=== PATIENT | male | born 1960 | race Two or more races ===

== ENCOUNTER 2024-06-09 10:26 | Emergency (ER) | payer MEDICARE, MEDICAID, SELFPAY ==
[2024-06-09 10:28] VITALS: BMI 27.4
[2024-06-09 10:39] VITALS: BP 165/82; PULSE 98; RESP 18; TEMP 39.4; O2SAT 96
--- NOTE | 2024-06-09 10:52 | XR_ITS ---
Examination: PA lateral chest 2 views Technique: Upright PA lateral chest 2 views Exam date and time: June 09, 2024 11:04 AM Indications: Coughing congestion fever bodyaches today. Findings: CABG. No significant cardiac enlargement No pneumonia or pulmonary edema Impression: No pneumonia or pulmonary edema
--- NOTE | 2024-06-09 10:52 | PD.EDRME ---
Rapid Medical Screening Exam RME Arrival date/time: 06/09/24 10:26 63-year-old male presents emergency department today for complaints of cough, congestion, fever body aches Chief Complaint: Flu Like Symptoms Vital signs: Vital Signs Temperature 102.9 F H 06/09/24 10:39 Pulse Rate 98 06/09/24 10:39 Respiratory Rate 18 06/09/24 10:39 Blood Pressure 165/82 H 06/09/24 10:39 Pulse Oximetry (%) 96 06/09/24 10:39 Oxygen Delivery Method Room Air 06/09/24 10:39
[2024-06-09 11:07] LABS: Collection Type, Urine Clean Catch; Squamous Epithelial Cell,Urine 0 /hpf (0-5)
[2024-06-09 11:14] LABS: Bilirubin,Urine Negative (Negative); Blood,Urine Negative (Negative); Clarity,Urine Clear (Clear/Hazy); Color,Urine Lt-Yellow (Lt Yel-Yel); Glucose, Urine 4+ (Negative); Ketones,Urine Negative (Negative); Leukocyte Esterase,Urine Negative (Negative); Nitrite,Urine Negative (Negative); PH,Urine 5.5 (5.0-7.0); Protein,Urine Trace (Neg - Trace); RBC,Urine 2 /hpf (0-3); Specific Gravity,Urine 1.034 (1.001-1.035); Urobilinogen,Urine Negative mg/dL (0.0-1.0); WBC,Urine 1 /hpf (0-5)
[2024-06-09] MEDS: ACETAMINOPHEN 500 MG TABLET 1000 MG PO (11:22)
[2024-06-09 12:07] LABS: Lactate (Lactic Acid) 1.5 mMol/L (0.4-2.0)
[2024-06-09 12:10] LABS: Basophils # (Auto) 0.1 Thou/mm3 (0.0-0.2); Basophils % (Auto) 1 % (0-2.5); Eosinophils % (Auto) 0 % (0-10); Hematocrit 43.1 % (41.0-53.0); Hemoglobin 14.6 g/dL (13.5-16.0); Immature Granulocytes % (Auto) 0 % (0-0); Immature Granulocytes Auto 0.05 Thou/mm3 (0.00-0.00); Lymphocytes # (Auto) 1.4 Thou/mm3 (1.0-4.8); Lymphocytes % (Auto) 9 % (10-50); Mean Corpuscular HGB Conc 33.9 g/dl (31.0-37.0); Mean Corpuscular Hemoglobin 29.5 pg (25.0-35.0); Mean Corpuscular Volume 87 fL (80-100); Monocytes # (Auto) 1.4 Thou/mm3 (0.0-0.8); Monocytes % (Auto) 10 % (0-12); Neutrophils # (Auto) 11.8 Thou/mm3 (1.8-7.7); Neutrophils % (Auto) 80 % (37-80); Nucleated Red Blood Cell % 0 /100 WBC (0); Platelet Count 206 Thou/mm3 (140-440); RDW Standard Deviation 42.6 fL (35.1-43.9); Red Blood Count 4.95 Miln/mm3 (4.50-5.90); White Blood Count 14.7 Thou/mm3 (3.8-10.6)
[2024-06-09 12:38] LABS: Alanine Aminotransferase 20 U/L (10-49); Albumin, Serum 4.6 gm/dL (3.4-4.8); Albumin/Globulin Ratio 1.5 (1.2-2.2); Alkaline Phosphatase 71 U/L (46-116); Anion Gap 7 (7-16); Aspartate Amino Transferase 20 U/L (0-34); BUN/Creatinine Ratio 10 Ratio (12-20); Bilirubin,Total 0.8 mg/dL (0.3-1.2); Blood Urea Nitrogen 14 mg/dL (9-23); Calcium 9.5 mg/dL (8.3-10.6); Calcium (Corrected) 9.5 mg/dL (8.5-10.1); Carbon Dioxide 26.4 mMol/L (20.0-31.0); Chloride 102 mMol/L (98-107); Creatinine (Component) 1.4 mg/dL (0.6-1.3); Estimated Creatinine Clearance 52.4 mL/min (>60); Glucose 185 mg/dL (74-106); Osmolality,Calculated 275 (275-295); Potassium 4.2 mMol/L (3.4-5.1); Procalcitonin 0.18 ng/ml (0.0-0.49); Sodium 135 mMol/L (136-145); Total Protein 7.6 gm/dL (5.7-8.2); eGFR 57 See Note
[2024-06-09 13:24] VITALS: TEMP 37.4
[2024-06-09 13:25] VITALS: BP 144/75; PULSE 85; RESP 17; TEMP 37.4; O2SAT 96
--- NOTE | 2024-06-09 15:04 | PC.NURSE ---
MALE VISITOR CAME TO TRIAGE DESK TO ASK HOW MUCH LONGER AND INFORMED THAT ALL RESULTS BACK AND WAITING ON PROVIDER TO REVIEW RESULTS. INFORMED THAT UNKNOWN WHEN PROVIDER WILL BE AVAILABLE TO REVIEW DUE TO JUST GETTING 2 CRITICAL PT'S IN THE BACK.
[2024-06-09 16:24] VITALS: BP 173/77; PULSE 93; RESP 24; TEMP 39.2; O2SAT 96
[2024-06-09] MEDS: IBUPROFEN TAB 600 MG TABLET PO (16:55)
[2024-06-09 17:24] VITALS: BP 151/70; PULSE 87; RESP 20; TEMP 37.9; O2SAT 96
--- NOTE | 2024-06-09 17:26 | PD.EDADULT ---
ED General RME/HPI General Chief complaint: Flu Like Symptoms Stated complaint: FLU SYMPTOMS FOR 5 DAYS Arrival date/time: 06/09/24 10:26 RME / HPI RME / HPI narrative: 06/09/24 10:26 63-year-old male presents emergency department today for complaints of cough, congestion, fever body aches DEYANIRA HPI: 63-year-old male otherwise healthy who presents to the emergency department with 2 weeks of generalized myalgias and joint pains that has now progressed to 5 days of fevers, cough and congestion. He denies chest pain or shortness of breath. He denies nausea vomiting or diarrhea. He denies sick contact. Related Data Previous Rx's ?Medication ?Instructions ?Recorded acetaminophen 325 mg tablet 650 mg (2 x 325 mg) PO Q6HR PRN 06/09/24 (Tylenol) fever or pain #20 tabs benzonatate 100 mg capsule 100 mg PO TID PRN cough #10 caps 06/09/24 ibuprofen 600 mg tablet 600 mg PO Q8H PRN pain #14 tabs 06/09/24 Allergies Allergy/AdvReac Type Severity Reaction Status Date / Time No Known Allergies Allergy Verified 06/09/24 10:31 Review of Systems Review of Systems Systems Reviewed: All systems reviewed, normal except as documented ROS Unobtainable: No unobtainable due to mental status, unobtainable due to medical condition, due to endotracheal tube or other ED Exam Narrative Physical exam: GENERAL APPEARANCE: AxOx4, generally well-appearing, no acute distress. HEENT: NC, AT. MMM. EOMI, clear conjunctiva, oropharynx clear. NECK: Supple without lymphadenopathy. No stiffness or restricted ROM. HEART: Normal rate and regular rhythm, normal S1/S1, no m/r/g LUNGS: CTAB, moving air well. No crackles or wheezes are heard. ABDOMEN: Soft, nontender, nondistended with good bowel sounds heard. BACK: No midline C/T/L spine pain or deformity, No CVAT, no obvious deformity. EXTREMITIES: Without cyanosis, clubbing or edema. MUSCULOSKELETAL: FROM of all major joints, no chest tenderness NEUROLOGICAL: Grossly nonfocal. Alert and oriented, moving all 4 extremities. CN not formally tested but appear grossly intact. Observed to ambulate with normal gait. Skin: Warm and dry without any rash. Course Course Course Narrative: Patient made clinically stable emerged part without signs of acute distress. We reviewed all results, analysis, treatment plan patient was amenable to discharge. Strict return precautions were reviewed and patient was discharged in stable condition. Quality Measures none Orders Category Date Time Status Bedside COVID-19 Antigen Test NOW Care 06/09/24 10:52 Active Bedside Influenza A&B Antigen Test NOW Care 06/09/24 10:52 Completed XR chest 2V Stat Exams 06/09/24 10:52 Completed Blood Culture (Lab) Stat Lab 06/09/24 11:36 Received CBC Stat Lab 06/09/24 11:36 Completed Comprehensive Metabolic Panel Stat Lab 06/09/24 11:36 Completed Lactate (Lactic Acid) Stat Lab 06/09/24 11:36 Completed Procalcitonin Stat Lab 06/09/24 11:36 Completed Urinalysis Stat Lab 06/09/24 11:02 Completed Urine Culture Stat Lab 06/09/24 11:02 Received Acetaminophen Tab [Tylenol ES Tab] Med 06/09/24 10:53 Discontinued 1,000 mg PO X1 ONE Ibuprofen Tab [Motrin Tab] Med 06/09/24 16:41 Discontinued 600 mg PO X1 ONE Vital Signs Vital signs: Vital Signs Temperature 102.9 F H 06/09/24 10:39 Pulse Rate 98 06/09/24 10:39 Respiratory Rate 18 06/09/24 10:39 Blood Pressure 165/82 H 06/09/24 10:39 Pulse Oximetry (%) 96 06/09/24 10:39 Oxygen Delivery Method Room Air 06/09/24 10:39 SpO2 96% on room air, patient is not hypoxic Discharge Plan Plan Patient Disposition: HOME (Self Care) Prescriptions/Referrals Prescriptions/Med Rec: New acetaminophen [Tylenol] 325 mg tablet 650 mg PO Q6HR PRN (Reason: fever or pain) Qty: 20 0RF ibuprofen 600 mg tablet 600 mg PO Q8H PRN (Reason: pain) Qty: 14 0RF benzonatate 100 mg capsule 100 mg PO TID PRN (Reason: cough) Qty: 10 0RF Referrals: No Primary/Family,Physician [Primary Care Provider] - In 1 week Problem List Clinical Impression: Upper respiratory infection Patient/Caregiver Discharge Instructions Education Materials: ED URI, Viral, No Abx (Adult) Additional Instructions: Acuda a burch m?dico de control el lunes seg?n lo programado. Deb abundante agua y descanse. Puede regresar a urgencias antes si los s?ntomas empeoran o si nota alg?n problema nuevo o preocupante. Print Language: Martiniquais Stand Alone Forms: Sandie Award Info., Patient Portal Info Letter MDM Patient Acuity Low Acuity (complete MDM as needed) Narrative: Mr. Bush is an otherwise pleasant, well-appearing gentleman without pertinent past medical history who presents with fevers, and generalized myalgias consistent with a viral syndrome. He otherwise has stable vital signs, with a normal physical exam. Laboratory testing and chest x-ray was sent via the E process which shows no acute findings, is significant for a mildly elevated white blood cell count of 14,000 and with negative viral panels. Chest x-ray my interpretation shows no acute cardiopulmonary findings, no cardiomegaly, no bony abnormalities. I reviewed the radiology interpretation and agree. As patient is well-appearing, nontoxic-appearing, and has a negative workup, he is appropriate for outpatient management and close follow-up. At this point I do not feel it warrants antibiotics, we have discussed and reviewed supportive measures such as antipyretics [id number], antitussives, and to follow-up closely with his primary care physician. He in fact made an appointment with primary care doctor is set to see him on Tuesday. Clinical Information Provided by: patient Medical Records reviewed [facility] Meds/Rx considered, not ordered describe: As per narrative Labs/Rad/Tests considered, not ordered Describe: As per narrative Chronic Illness/Social Conditions which may negatively complicate care or outcome(s)-explain: None or not applicable Medication Administration(s) Medication Administration History Discontinued Medications Acetaminophen (Acetaminophen 500 Mg Tablet) 1,000 mg PO X1 ONE Stop: 06/09/24 10:54 Last Admin: 06/09/24 11:22 Dose: 1,000 mg Documented By: JED Ibuprofen (Ibuprofen Tab 600 Mg Tablet) 600 mg PO X1 ONE Stop: 06/09/24 16:42 Last Admin: 06/09/24 16:55 Dose: 600 mg Documented By: DELFINO As above Diagnosis Differential Diagnosis ED Complaint MDM: Viral syndrome, bronchitis, pneumonia, viral pneumonia
== END 2024-06-09 17:31 | disposition home or self-care (01) ==
PROVIDERS: Nurse Practitioner Primary Care; Emergency Provider Emergency Medicine
DX: J06.9 Acute upper respiratory infection, unspecified (principal)
CPT/HCPCS: 36415; 71046; 80053; 81001; 83605; 84145; 85025; 87040; 87086; 87400; 87811; 99283; A9270